=== PATIENT | male | born 1985 | race Two or more races ===

== ENCOUNTER 2017-06-08 09:07 | Emergency (ER) | payer OTHER ==
[2017-06-08 09:27] VITALS: BP 147/58; PULSE 77; TEMP 98; BMI 28.1
[2017-06-08] MEDS ORDERED: ALBUTEROL SO4 2.5/IPRATROPIUM 0.5 INH SOL 3 ML VIAL.NEB. NEB ONE ×2 (10:33→10:35)
[2017-06-08] MEDS ORDERED: IBUPROFEN 400 MG TABLET (FP) PO ONE ×2 (10:33→10:35)
--- NOTE | 2017-06-08 10:34 | PDOC ---
History of Present Illness - General Chief Complaint: Cold Symptoms Stated Complaint: FEVER, COUGH Time Seen by Provider: 06/08/17 10:21 History Source: Patient Exam Limitations: No Limitations - History of Present Illness Initial Comments: 06/08/17 10:33 32 yr male with c/o sore throat body aches cough started monday with fever. nasal congestion. pt has no medical history, allergy to pcn. 06/08/17 10:38 Severity: mild Associated Symptoms: reports: cough, fever/chills Past History - Past Medical History Allergies/Adverse Reactions: Allergies Allergy/AdvReac Type Severity Reaction Status Date / Time Penicillins Allergy Verified 06/08/17 09:22 Home Medications: Ambulatory Orders NK [No Known Home Medication] 06/08/17 CVA: No COPD: No DVT: No Dementia: No - Suicide/Smoking/Psychosocial Hx Smoking History: Current some day smoker Number of Cigarettes Smoked Daily: 2 Information on smoking cessation initiated: No Hx Alcohol Use: No Drug/Substance Use Hx: No Substance Use Type: None Review of Systems - Review of Systems Able to Perform ROS?: Yes Is the patient limited [place]olan proficient: No Constitutional: Yes: Symptoms Reported HEENTM: Yes: Symptoms Reported Respiratory: Yes: Symptoms reported *Physical Exam - Vital Signs Last Vital Signs Temp Pulse Resp BP Pulse Ox 98.0 F 77 16 147/58 96 06/08/17 09:22 06/08/17 09:22 06/08/17 09:22 06/08/17 09:22 06/08/17 09:22 - Physical Exam General Appearance: Yes: Nourished, Appropriately Dressed HEENT: positive: EOMI, PINKY, TMs Normal, Pharyngeal Erythema, Nasal Congestion, Rhinorrhea. negative: Tonsillar Exudate, Tonsillar Erythema Neck: positive: Supple. negative: Lymphadenopathy (R), Lymphadenopathy (L) Respiratory/Chest: positive: Lungs Clear, Normal Breath Sounds, Decreased Breath Sounds. 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, Fully Oriented, Alert, Normal Mood/ Affect, Normal Response, Motor Strength 08/26 *DC/Admit/Observation/Transfer Diagnosis at time of Disposition: Influenza-like illness - Discharge Dispostion Disposition: HOME Condition at time of disposition: Good - Referrals Referrals: Kayleigh Lerner [Primary Care Provider] - - Patient Instructions Additional Instructions: drink pleanty of fluids to stay well hydrated take ibuprofen 600mg every 8hrs for fever you can also take tylenol 650mg every 4-6hrs for pain or fever get pleanty of rest avoid crowds, parties, and small babies and elderly persons return to the ER for any worsening symptoms - Post Discharge Activity Forms/Work/School Notes: Back to Work
== END 2017-06-08 12:01 | disposition home or self-care (01) ==
LOC: JERFT 09:07
PROC: 3E0F7GC Introduction of Other Therapeutic Substance into Respiratory Tract, Via Natural or Artificial Opening (ICD-10-PCS; principal; 2017-06-08)
DX: J11.1 Influenza due to unidentified influenza virus with other respiratory manifestations (principal); F17.210 Nicotine dependence, cigarettes, uncomplicated
CPT/HCPCS: 87070; 87430; 99281-25

== ENCOUNTER 2018-12-17 04:55 | Emergency (ER) | payer OTHER ==
--- NOTE | 2018-12-17 05:46 | PDOC ---
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 emesis right after useing hot pads didn't take nay medications since 3:30 yesterday Past History - Past Medical History Allergies/Adverse Reactions: Allergies Allergy/AdvReac Type Severity Reaction Status Date / Time Penicillins Allergy Verified 12/17/18 05:28 Home Medications: Ambulatory Orders Ibuprofen [Motrin -] 600 mg PO DAILY #10 tablet 12/17/18 Methocarbamol [Robaxin -] 500 mg PO TID #9 tablet 12/17/18 CVA: No COPD: No DVT: No Dementia: No - Suicide/Smoking/Psychosocial Hx Smoking History: Current some day smoker Number of Cigarettes Smoked Daily: 1 Hx Alcohol Use: No Drug/Substance Use Hx: No Substance Use Type: None *DC/Admit/Observation/Transfer Diagnosis at time of Disposition: Muscle strain - Discharge Dispostion Disposition: HOME Condition at time of disposition: Fair Decision to Admit order: No - Prescriptions Prescriptions: Ibuprofen [Motrin -] 600 mg PO DAILY #10 tablet Methocarbamol [Robaxin -] 500 mg PO TID #9 tablet - Referrals Referrals: Kayleigh Lerner [Primary Care Provider] - Pedro Gao MD [Staff Physician] - - Patient Instructions Printed Discharge Instructions: DI for Muscle Strain Additional Instructions: You have muscle strain Take motrin and robaxin Follow up with your Primary care doctor Return to the ED if you have stiffness in the shoulders, loss of consciousness. - Post Discharge Activity Forms/Work/School Notes: Back to Work
[2018-12-17] MEDS ORDERED: IBUPROFEN 600 MG TABLET (FP) PO ONE ×2 (05:58→06:13)
--- NOTE | 2018-12-17 06:05 | PDOC ---
Attending Attestation - Resident Resident Name: Maeve Cruz - ED Attending Attestation I have performed the following: I have examined & evaluated the patient, The case was reviewed & discussed with the resident, I agree w/resident's findings & plan - HPI HPI: 12/17/18 06:04 Pt comes with shoulder strain - Physicial Exam PE: 12/17/18 06:04 Agree with resident exam - Medical Decision Making 12/17/18 06:05 Motrin mm relaxant and a day off.
[2018-12-17] MEDS ORDERED: METHOCARBAMOL 500 MG TABLET PO ONE (06:08)
[2018-12-17] MEDS ORDERED: METHOCARBAMOL 500 MG TABLET ONE (06:13)
[2018-12-17 06:37] VITALS: TEMP 98.3; BMI 31.3
[2018-12-17 06:41] VITALS: BP 141/85; PULSE 64
== END 2018-12-17 06:25 | disposition home or self-care (01) ==
LOC: JER 04:55
DX: S46.811A Strain of other muscles, fascia and tendons at shoulder and upper arm level, right arm, initial encounter (principal); S46.812A Strain of other muscles, fascia and tendons at shoulder and upper arm level, left arm, initial encounter; X50.9XXA Other and unspecified overexertion or strenuous movements or postures, initial encounter; Y93.89 Activity, other specified; Y92.89 Other specified places as the place of occurrence of the external cause; Y99.8 Other external cause status
CPT/HCPCS: 99282-25

== ENCOUNTER 2019-05-06 12:59 | Emergency (ER) | payer OTHER ==
[2019-05-06 13:03] VITALS: BP 127/70; PULSE 88; TEMP 98; BMI 28.1
--- NOTE | 2019-05-06 14:29 | PDOC ---
History of Present Illness - General Chief Complaint: Suture/Staple Removal (other) Stated Complaint: STICHES REMOVAL Time Seen by Provider: 05/06/19 14:01 - History of Present Illness Initial Comments: 05/06/19 14:27 34-year-old male presents for suture removal from sutures placed in his forehead 7 days ago. No sequelae since suture placement Past History - Past Medical History Allergies/Adverse Reactions: Allergies Allergy/AdvReac Type Severity Reaction Status Date / Time Penicillins Allergy Verified 05/06/19 13:03 Home Medications: Ambulatory Orders NK [No Known Home Medication] 05/06/19 CVA: No COPD: No DVT: No Dementia: No - Psycho Social/Smoking Cessation Hx Smoking History: Current every day smoker Number of Cigarettes Smoked Daily: 2 Information on smoking cessation initiated: No Hx Alcohol Use: No Drug/Substance Use Hx: No Substance Use Type: None Review of Systems - Review of Systems Constitutional: No: Fever *Physical Exam - Vital Signs Last Vital Signs Temp Pulse Resp BP Pulse Ox 98 F 88 18 127/70 98 05/06/19 13:00 05/06/19 13:00 05/06/19 13:00 05/06/19 13:00 05/06/19 13:00 - Physical Exam 05/06/19 14:27 Sutures in the forehead normal surrounding skin color temperature no indication of infection Medical Decision Making - Medical Decision Making 05/06/19 14:27 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 After 48 hours you may gently wash the area with soap and water and pat it dry and leave it open to air. Do not apply any ointment such as bacitracin or Neosporin. Without fail please follow-up with your primary care physician in 2 to 3 days for a wound check. Return to the emergency room for further issues. - Post Discharge Activity
== END 2019-05-06 14:34 | disposition home or self-care (01) ==
LOC: JERFT 12:59
DX: Z48.817 Encounter for surgical aftercare following surgery on the skin and subcutaneous tissue (principal); Z48.02 Encounter for removal of sutures
CPT/HCPCS: 99281-25

== ENCOUNTER 2022-02-23 16:59 | Emergency (ER) | payer OTHER ==
[2022-02-23 18:05] VITALS: BP 104/60; PULSE 100; RESP 19; TEMP 102.9; BMI 30.5
[2022-02-23] MEDS ORDERED: KETOROLAC TROMETHAMINE 30 MG/1 ML VIAL IM ONE (18:10)
[2022-02-23] MEDS ORDERED: ACETAMINOPHEN 500 MG TABLET (FP) PO ONE (18:10)
[2022-02-23] MEDS ORDERED: ONDANSETRON *ODT* 4 MG TABLET SL ONE (18:56)
[2022-02-23] MEDS ORDERED: KETOROLAC TROMETHAMINE 30 MG/1 ML VIAL ONE (18:57)
[2022-02-23] MEDS ORDERED: ACETAMINOPHEN 500 MG TABLET (FP) ONE (18:57)
[2022-02-23] MEDS ORDERED: ONDANSETRON 4 MG TABLET PO ONE (18:58)
== END 2022-02-23 23:32 | disposition home or self-care (01) ==
LOC: JER 16:59
PROC: 3E0233Z Introduction of Anti-inflammatory into Muscle, Percutaneous Approach (ICD-10-PCS; principal; 2022-02-23)
DX: K52.9 Noninfective gastroenteritis and colitis, unspecified (principal)
CPT/HCPCS: 0241U-QW; 99284-25

== ENCOUNTER 2022-04-07 11:36 | Emergency (ER) | payer OTHER ==
[2022-04-07 11:39] VITALS: BP 119/74; PULSE 88; RESP 18; TEMP 98.9; BMI 29.7
== END 2022-04-07 13:20 | disposition home or self-care (01) ==
LOC: JER 11:36
DX: J06.9 Acute upper respiratory infection, unspecified (principal)
CPT/HCPCS: 0241U-QW; 99283-25